=== PATIENT | female | born 1950 | race Hispanic/Latino ===

== ENCOUNTER 2017-11-24 00:46 | Inpatient (IN) | payer OTHER ==
[~2017-11-24] VITALS: Ht 170.2 cm; Wt 100.5 kg
[2017-11-24 01:41] LABS: BASOPHILS % (AUTO) 1.6 % (0.0-5.0); EOSINOPHILS % (AUTO) 2.6 % (0.0-8.0); HEMATOCRIT 25.5 % (36-48); LYMPHOCYTES % (AUTO) 4.3 % (21.0-51.0); MEAN CORPUSCULAR HEMOGLOBIN 31.7 pg (27.0-33.0); MEAN CORPUSCULAR HGB CONC 34.5 g/dL (32.0-36.0); MEAN CORPUSCULAR VOLUME 91.9 fL (79-99); MONOCYTES % (AUTO) 5.4 % (3.0-13.0); NEUTROPHILS % (AUTO) 86.1 % (40.0-77.0); PLATELET COUNT (AUTO) 129 K/uL (130-400); RED BLOOD CELL COUNT(AUTO) 2.77 MIL/uL (4.00-5.50); RED CELL DISTRIBUTION WIDTH 13.6 % (11.0-15.5); WHITE BLOOD COUNT (AUTO) 11.1 K/uL (4.8-10.8)
[2017-11-24] MEDS ORDERED: IPRATROPIUM/ALBUTEROL SULFATE 3 ML SOLUTION IH ONE (01:42)
[2017-11-24 01:59] LABS: CREATININE 3.3 mg/dL (0.5-1.5); POTASSIUM 5.3 mmol/L (3.5-5.1)
[2017-11-24 02:12] LABS: ALBUMIN 2.2 g/dL (3.5-5.0); BILIRUBIN,TOTAL 0.6 mg/dL (0.2-1.0); CREATINE KINASE MB 2.4 ng/mL (0.5-3.6); TOTAL PROTEIN, SERUM 7.7 g/dL (6.0-8.3)
[2017-11-24] MEDS ORDERED: SODIUM POLYSTYRENE SULFONATE 15 GM/60 ML ML ONE (03:12)
[2017-11-24] MEDS ORDERED: FUROSEMIDE 10 MG/ML 4ML VIAL ONE (03:13)
[2017-11-24] MEDS ORDERED: SODIUM BICARB 50MEQ 50ML VIAL ONE (03:13)
[2017-11-24] MEDS ORDERED: LABETALOL HCL 5 MG/ML 20ML VIAL IV ONE (04:08)
[2017-11-24 06:35] VITALS: BP 183/80
[2017-11-24] MEDS ORDERED: FUROSEMIDE 10 MG/ML 2ML VIAL IVP SCH ×2 (09:25→17:00)
[2017-11-24] MEDS ORDERED: POTASSIUM CHLORIDE 20 MEQ ERTAB PO PRN (09:30)
[2017-11-24] MEDS ORDERED: DEXTROSE 50%-WATER 50 ML DISP.SYRIN IV PRN (09:30)
[2017-11-24] MEDS ORDERED: POTASSIUM CHLORIDE 10% ELIXIR 20 MEQ/15 ML UDCUP PO PRN (09:30)
[2017-11-24] MEDS ORDERED: LIDOCAINE HCL-MPF 1% 2ML VIAL IJ PRN (09:30)
[2017-11-24] MEDS ORDERED: ACETAMINOPHEN-CODEINE ELIXIR 5 ML UDCUP PO PRN (09:30)
[2017-11-24] MEDS ORDERED: SODIUM CHLORIDE 0.9% 10 ML VIAL IVP SCH (09:30)
[2017-11-24] MEDS ORDERED: POTASSIUM CHLORIDE 20MEQ/100ML 100 ML IV PRN (09:30)
[2017-11-24] MEDS ORDERED: GLUCAGON 1MG KIT 1 MG ML IM PRN (09:30)
[2017-11-24] MEDS ORDERED: ONDANSETRON HCL 4 MG/2 ML VIAL IVP PRN (09:30)
[2017-11-24] MEDS ORDERED: FUROSEMIDE 10 MG/ML 2ML VIAL IV SCH (10:45)
[2017-11-24] MEDS ORDERED: LEVOFLOXACIN 500 MG/D5W 100 ML 100 ML IV SCH (10:45)
[2017-11-24] MEDS ORDERED: RENAL DOSE IV PRN (11:00)
[2017-11-24] MEDS: IPRATROPIUM/ALBUTEROL SULFATE 3 ML SOLUTION IH SCH ×3 (11:07→23:23)
[2017-11-24] MEDS: INSULIN R PO SSI SQ SCH ×3 (11:30→21:00)
[2017-11-24 11:43] VITALS: BP 178/78
[2017-11-24] MEDS ORDERED: ONDANSETRON HCL MDV 20ML 2 MG/ML VIAL IVP PRN (12:55)
[2017-11-24] MEDS ORDERED: CLONIDINE HCL 0.1 MG TABLET PO PRN (13:45)
[2017-11-24] MEDS ORDERED: CLONIDINE HCL 0.1 MG TABLET ONE (13:56)
[2017-11-24] MEDS: HEPARIN SODIUM 5000UNIT/ML 1ML VIAL SQ SCH ×2 (14:06→21:29)
[2017-11-24] MEDS ORDERED: CLON0.1T PO (14:25)
[2017-11-24] MEDS ORDERED: SERT50TA12 PO (14:25)
[2017-11-24] MEDS ORDERED: VERA240C3 PO (14:25)
[2017-11-24] MEDS ORDERED: ERGO400T7 PO (14:25)
[2017-11-24] MEDS ORDERED: SPIR25TA6 PO (14:25)
[2017-11-24 16:00] VITALS: BP 173/80
[2017-11-24] MEDS: HYDRALAZINE HCL 20 MG/ML VIAL IV PRN (17:41)
[2017-11-24 19:54] VITALS: BP 158/66
[2017-11-24] MEDS ORDERED: FAMOTIDINE 20MG TAB 20 MG TAB PO SCH (21:00)
[2017-11-24] MEDS ORDERED: FAMOTIDINE 20MG TAB 20 MG TAB ONE (21:19)
[2017-11-24] MEDS: FUROSEMIDE 10 MG/ML 4ML VIAL IV SCH (21:24)
[2017-11-24] MEDS: FAMOTIDINE 20MG TAB 20 MG TAB PO SCH (21:32)
[2017-11-24 22:15] LABS: APPEARANCE,URINE Clear (CLEAR); BILIRUBIN,URINE Negative (NEGATIVE); COLOR,URINE Yellow (YELLOW); GLUCOSE, URINE (UA) TRACE mg/dL (NEGATIVE); KETONES,URINE Negative (NEGATIVE); LEUKOCYTE ESTERASE ,URINE Trace (NEGATIVE); NITRATE,URINE Negative (NEGATIVE); OCCULT BLOOD,URINE Small (NEGATIVE); PROTEIN,URINE POS 2+ (NEGATIVE)
[2017-11-24 22:22] LABS: BACTERIA,URINE Few /HPF (None Seen); RBC,URINE None Seen /HPF (0-1)
[2017-11-24 23:36] VITALS: BP 145/71
[2017-11-25] VITALS (7 sets, daily range): BP systolic 149–189; BP diastolic 67–81
[2017-11-25] MEDS: ACETAMINOPHEN 325 MG TAB PO PRN (03:49)
[2017-11-25 04:38] LABS: CREATININE 3.2 mg/dL (0.5-1.5); POTASSIUM 4.7 mmol/L (3.5-5.1)
[2017-11-25 04:41] LABS: HEMATOCRIT 22.7 % (36-48); MEAN CORPUSCULAR HEMOGLOBIN 31.3 pg (27.0-33.0); MEAN CORPUSCULAR HGB CONC 34.2 g/dL (32.0-36.0); MEAN CORPUSCULAR VOLUME 91.6 fL (79-99); PLATELET COUNT (AUTO) 113 K/uL (130-400); RED BLOOD CELL COUNT(AUTO) 2.48 MIL/uL (4.00-5.50); RED CELL DISTRIBUTION WIDTH 13.6 % (11.0-15.5); WHITE BLOOD COUNT (AUTO) 9.7 K/uL (4.8-10.8)
[2017-11-25 04:46] LABS: B-TYPE NATRIURETIC PEPTIDE 386 pg/mL (0-100)
[2017-11-25] MEDS: FUROSEMIDE 10 MG/ML 4ML VIAL IV SCH ×3 (06:00→22:45)
[2017-11-25] MEDS: INSULIN R PO SSI SQ SCH ×4 (06:00→21:00)
[2017-11-25] MEDS: IPRATROPIUM/ALBUTEROL SULFATE 3 ML SOLUTION IH SCH ×4 (06:20→23:42)
[2017-11-25 08:52] LABS: ALBUMIN 1.8 g/dL (3.5-5.0); CREATININE 3.2 mg/dL (0.5-1.5); PHOSPHORUS 4.8 mg/dL (2.5-4.9); POTASSIUM 4.8 mmol/L (3.5-5.1)
[2017-11-25] MEDS: FAMOTIDINE 20MG TAB 20 MG TAB PO SCH (09:08)
[2017-11-25] MEDS: LEVOFLOXACIN 250 MG/D5W 50ML 50 ML IV SCH (09:08)
[2017-11-25] MEDS: HEPARIN SODIUM 5000UNIT/ML 1ML VIAL SQ SCH ×3 (09:17→21:14)
[2017-11-25] MEDS: HYDRALAZINE HCL 20 MG/ML VIAL IV PRN (18:02)
[2017-11-25] MEDS: CLONIDINE HCL 0.1 MG TABLET PO SCH (21:09)
[2017-11-26] MEDS: ACETAMINOPHEN 325 MG TAB PO PRN (01:12)
[2017-11-26 03:30] VITALS: BP 162/72
[2017-11-26 03:45] LABS: MEAN CORPUSCULAR HEMOGLOBIN 32.5 pg (27.0-33.0); MEAN CORPUSCULAR HGB CONC 35.6 g/dL (32.0-36.0); MEAN CORPUSCULAR VOLUME 91.3 fL (79-99); PLATELET COUNT (AUTO) 97 K/uL (130-400); RED BLOOD CELL COUNT(AUTO) 2.29 MIL/uL (4.00-5.50); RED CELL DISTRIBUTION WIDTH 13.5 % (11.0-15.5)
[2017-11-26 03:49] LABS: HEMATOCRIT 20.9 % (36-48)
[2017-11-26 04:02] LABS: CREATININE 3.3 mg/dL (0.5-1.5); POTASSIUM 4.4 mmol/L (3.5-5.1)
[2017-11-26 04:16] LABS: % IRON SATURATION 16.2 % (22-44)
[2017-11-26] MEDS: INSULIN R PO SSI SQ SCH ×4 (06:12→20:29)
[2017-11-26] MEDS: FUROSEMIDE 10 MG/ML 4ML VIAL IV SCH ×2 (06:12→17:04)
[2017-11-26] MEDS: IPRATROPIUM/ALBUTEROL SULFATE 3 ML SOLUTION IH SCH ×4 (06:17→23:25)
[2017-11-26 08:00] VITALS: BP 128/83
[2017-11-26] MEDS: VERAPAMIL 360 MG PO SCH (09:00)
[2017-11-26] MEDS: HEPARIN SODIUM 5000UNIT/ML 1ML VIAL SQ SCH ×3 (09:00→21:00)
[2017-11-26] MEDS: FAMOTIDINE 20MG TAB 20 MG TAB PO SCH (10:03)
[2017-11-26] MEDS: CLONIDINE HCL 0.1 MG TABLET PO SCH ×2 (10:03→21:00)
[2017-11-26] MEDS: LEVOFLOXACIN 250 MG/D5W 50ML 50 ML IV SCH (10:03)
[2017-11-26 10:08] LABS: ALBUMIN 1.5 g/dL (3.5-5.0); CREATININE 3.3 mg/dL (0.5-1.5); PHOSPHORUS 5.6 mg/dL (2.5-4.9)
[2017-11-26 12:00] VITALS: BP 181/83
[2017-11-26] MEDS: HYDRALAZINE HCL 20 MG/ML VIAL IV PRN (12:47)
[2017-11-26 16:00] VITALS: BP 172/85
[2017-11-26 19:35] VITALS: BP 124/54
[2017-11-26] MEDS: FERROUS SULFATE 325 MG TABLET.DR PO SCH (20:20)
[2017-11-26] MEDS: METOPROLOL TARTRATE 25 MG TAB PO SCH (20:21)
[2017-11-26] MEDS: INSULIN GLARGINE 100 UNITS/ML 10 ML VIAL SQ SCH (20:26)
[2017-11-26 23:25] VITALS: BP 159/69
[2017-11-27] VITALS (7 sets, daily range): BP systolic 143–191; BP diastolic 61–82
[2017-11-27 03:53] LABS: BASOPHILS % (AUTO) 0.4 % (0.0-5.0); EOSINOPHILS % (AUTO) 3.8 % (0.0-8.0); HEMATOCRIT 22.5 % (36-48); LYMPHOCYTES % (AUTO) 12.5 % (21.0-51.0); MEAN CORPUSCULAR HEMOGLOBIN 31.3 pg (27.0-33.0); MEAN CORPUSCULAR HGB CONC 34.8 g/dL (32.0-36.0); MEAN CORPUSCULAR VOLUME 89.9 fL (79-99); MONOCYTES % (AUTO) 9.1 % (3.0-13.0); NEUTROPHILS % (AUTO) 74.2 % (40.0-77.0); PLATELET COUNT (AUTO) 125 K/uL (130-400); RED BLOOD CELL COUNT(AUTO) 2.51 MIL/uL (4.00-5.50); RED CELL DISTRIBUTION WIDTH 13.5 % (11.0-15.5); WHITE BLOOD COUNT (AUTO) 8.8 K/uL (4.8-10.8)
[2017-11-27 04:09] LABS: ALBUMIN 1.6 g/dL (3.5-5.0); CREATININE 3.2 mg/dL (0.5-1.5); PHOSPHORUS 4.9 mg/dL (2.5-4.9); POTASSIUM 4.2 mmol/L (3.5-5.1)
[2017-11-27] MEDS: INSULIN R PO SSI SQ SCH ×4 (06:10→21:45)
[2017-11-27] MEDS: IPRATROPIUM/ALBUTEROL SULFATE 3 ML SOLUTION IH SCH ×3 (06:41→18:58)
[2017-11-27] MEDS: VERAPAMIL 360 MG PO SCH (09:00)
[2017-11-27] MEDS: HEPARIN SODIUM 5000UNIT/ML 1ML VIAL SQ SCH ×3 (09:00→21:00)
[2017-11-27 09:21] LABS: ALBUMIN 1.6 g/dL (3.5-5.0); CREATININE 3.3 mg/dL (0.5-1.5); PHOSPHORUS 4.9 mg/dL (2.5-4.9)
[2017-11-27] MEDS: FERROUS SULFATE 325 MG TABLET.DR PO SCH ×2 (10:56→21:42)
[2017-11-27] MEDS: BUMETANIDE 1 MG TAB PO SCH (10:56)
[2017-11-27] MEDS: METOPROLOL TARTRATE 25 MG TAB PO SCH ×2 (10:57→21:42)
[2017-11-27] MEDS: FAMOTIDINE 20MG TAB 20 MG TAB PO SCH (10:57)
[2017-11-27] MEDS: CLONIDINE HCL 0.1 MG TABLET PO SCH ×3 (10:58→21:43)
[2017-11-27] MEDS: LEVOFLOXACIN 250 MG/D5W 50ML 50 ML IV SCH (10:58)
[2017-11-27] MEDS: INSULIN GLARGINE 100 UNITS/ML 10 ML VIAL SQ SCH (21:52)
[2017-11-28] MEDS: IPRATROPIUM/ALBUTEROL SULFATE 3 ML SOLUTION IH SCH ×4 (00:10→18:25)
[2017-11-28 03:43] LABS: HEMATOCRIT 21.5 % (36-48); MEAN CORPUSCULAR HEMOGLOBIN 32.1 pg (27.0-33.0); MEAN CORPUSCULAR HGB CONC 35.6 g/dL (32.0-36.0); MEAN CORPUSCULAR VOLUME 90.1 fL (79-99); PLATELET COUNT (AUTO) 99 K/uL (130-400); RED BLOOD CELL COUNT(AUTO) 2.39 MIL/uL (4.00-5.50); WHITE BLOOD COUNT (AUTO) 6.1 K/uL (4.8-10.8)
[2017-11-28 04:00] VITALS: BP 171/78
[2017-11-28 04:01] LABS: CREATININE 3.2 mg/dL (0.5-1.5); POTASSIUM 4.2 mmol/L (3.5-5.1)
[2017-11-28] MEDS: INSULIN R PO SSI SQ SCH ×3 (06:21→20:39)
[2017-11-28 08:00] VITALS: BP 184/77
[2017-11-28] MEDS: LEVOFLOXACIN 250 MG/D5W 50ML 50 ML IV SCH (09:37)
[2017-11-28] MEDS: FAMOTIDINE 20MG TAB 20 MG TAB PO SCH (09:38)
[2017-11-28] MEDS: METOPROLOL TARTRATE 25 MG TAB PO SCH ×2 (09:38→20:40)
[2017-11-28] MEDS: FERROUS SULFATE 325 MG TABLET.DR PO SCH ×2 (09:38→20:40)
[2017-11-28] MEDS: BUMETANIDE 1 MG TAB PO SCH (09:38)
[2017-11-28] MEDS: CLONIDINE HCL 0.1 MG TABLET PO SCH ×3 (09:38→21:00)
[2017-11-28] MEDS: HYDRALAZINE HCL 20 MG/ML VIAL IV PRN (09:42)
[2017-11-28] MEDS: VERAPAMIL 360 MG PO SCH (09:45)
[2017-11-28 12:00] VITALS: BP 155/63
[2017-11-28] MEDS: AMLODIPINE BESYLATE 5 MG TAB PO SCH (13:08)
[2017-11-28 16:00] VITALS: BP 140/61
[2017-11-28 20:03] VITALS: BP 123/90
[2017-11-28] MEDS: INSULIN GLARGINE 100 UNITS/ML 10 ML VIAL SQ SCH (20:43)
[2017-11-28 23:46] VITALS: BP 132/54
[2017-11-29] MEDS: IPRATROPIUM/ALBUTEROL SULFATE 3 ML SOLUTION IH SCH ×5 (01:24→23:18)
[2017-11-29 03:59] VITALS: BP 144/59
[2017-11-29] MEDS: INSULIN R PO SSI SQ SCH ×4 (05:52→20:37)
[2017-11-29 05:56] LABS: HEMATOCRIT 21.8 % (36-48); MEAN CORPUSCULAR HEMOGLOBIN 31.6 pg (27.0-33.0); MEAN CORPUSCULAR HGB CONC 35.2 g/dL (32.0-36.0); MEAN CORPUSCULAR VOLUME 89.8 fL (79-99); PLATELET COUNT (AUTO) 111 K/uL (130-400); RED BLOOD CELL COUNT(AUTO) 2.43 MIL/uL (4.00-5.50); RED CELL DISTRIBUTION WIDTH 13.3 % (11.0-15.5); WHITE BLOOD COUNT (AUTO) 6.6 K/uL (4.8-10.8)
[2017-11-29 06:07] LABS: CREATININE 3.2 mg/dL (0.5-1.5); POTASSIUM 4.3 mmol/L (3.5-5.1)
[2017-11-29 08:00] VITALS: BP 164/74
[2017-11-29] MEDS: VERAPAMIL 360 MG PO SCH (09:00)
[2017-11-29] MEDS: FAMOTIDINE 20MG TAB 20 MG TAB PO SCH (09:49)
[2017-11-29] MEDS: FERROUS SULFATE 325 MG TABLET.DR PO SCH ×2 (09:50→20:33)
[2017-11-29] MEDS: CLONIDINE HCL 0.1 MG TABLET PO SCH ×3 (09:50→20:33)
[2017-11-29] MEDS: BUMETANIDE 1 MG TAB PO SCH (09:50)
[2017-11-29] MEDS: AMLODIPINE BESYLATE 5 MG TAB PO SCH (09:50)
[2017-11-29] MEDS: METOPROLOL TARTRATE 25 MG TAB PO SCH ×2 (09:50→20:33)
[2017-11-29] MEDS: LEVOFLOXACIN 250 MG/D5W 50ML 50 ML IV SCH (09:50)
[2017-11-29 12:00] VITALS: BP 152/61
[2017-11-29 16:00] VITALS: BP 131/79
[2017-11-29] MEDS: GUAIFENESIN-DM 200/20 MG 10 ML PO PRN (16:53)
[2017-11-29 19:47] VITALS: BP 116/49
[2017-11-29] MEDS: INSULIN GLARGINE 100 UNITS/ML 10 ML VIAL SQ SCH (20:36)
[2017-11-29 23:31] VITALS: BP 115/51
[2017-11-30 04:14] VITALS: BP 135/70
[2017-11-30 05:39] LABS: HEMATOCRIT 21.4 % (36-48); MEAN CORPUSCULAR HGB CONC 36.7 g/dL (32.0-36.0); MEAN CORPUSCULAR VOLUME 90.1 fL (79-99); PLATELET COUNT (AUTO) 106 K/uL (130-400); RED BLOOD CELL COUNT(AUTO) 2.37 MIL/uL (4.00-5.50); RED CELL DISTRIBUTION WIDTH 13.1 % (11.0-15.5); WHITE BLOOD COUNT (AUTO) 7.1 K/uL (4.8-10.8)
[2017-11-30 05:53] LABS: CREATININE 3.5 mg/dL (0.5-1.5); POTASSIUM 4.5 mmol/L (3.5-5.1)
[2017-11-30] MEDS: INSULIN R PO SSI SQ SCH ×4 (05:59→21:00)
[2017-11-30] MEDS: IPRATROPIUM/ALBUTEROL SULFATE 3 ML SOLUTION IH SCH ×4 (06:41→23:30)
[2017-11-30 08:00] VITALS: BP 139/59
[2017-11-30] MEDS: LEVOFLOXACIN 250 MG/D5W 50ML 50 ML IV SCH (08:45)
[2017-11-30] MEDS: FERROUS SULFATE 325 MG TABLET.DR PO SCH ×2 (08:46→21:06)
[2017-11-30] MEDS: CLONIDINE HCL 0.1 MG TABLET PO SCH ×3 (08:46→21:07)
[2017-11-30] MEDS: METOPROLOL TARTRATE 25 MG TAB PO SCH ×2 (08:46→21:06)
[2017-11-30] MEDS: AMLODIPINE BESYLATE 5 MG TAB PO SCH (08:46)
[2017-11-30] MEDS: FAMOTIDINE 20MG TAB 20 MG TAB PO SCH (08:46)
[2017-11-30] MEDS: VERAPAMIL 360 MG PO SCH (08:54)
[2017-11-30] MEDS: BUMETANIDE 1 MG TAB PO SCH (09:36)
[2017-11-30 11:00] VITALS: BP 127/53
[2017-11-30 16:00] VITALS: BP 133/56
[2017-11-30 20:00] VITALS: BP 118/48
[2017-11-30] MEDS: INSULIN GLARGINE 100 UNITS/ML 10 ML VIAL SQ SCH (21:11)
[2017-11-30] MEDS: GUAIFENESIN-DM 200/20 MG 10 ML PO PRN (21:23)
[2017-11-30 23:55] VITALS: BP 116/61
[2017-12-01 03:52] VITALS: BP 122/53
[2017-12-01] MEDS: INSULIN R PO SSI SQ SCH ×3 (06:04→16:30)
[2017-12-01] MEDS: IPRATROPIUM/ALBUTEROL SULFATE 3 ML SOLUTION IH SCH ×2 (06:14→11:24)
[2017-12-01 07:55] VITALS: BP 127/53
[2017-12-01] MEDS: VERAPAMIL 360 MG PO SCH (09:00)
[2017-12-01] MEDS: AMLODIPINE BESYLATE 5 MG TAB PO SCH (10:37)
[2017-12-01] MEDS: FAMOTIDINE 20MG TAB 20 MG TAB PO SCH (10:37)
[2017-12-01] MEDS: METOPROLOL TARTRATE 25 MG TAB PO SCH (10:38)
[2017-12-01] MEDS: LEVOFLOXACIN 250 MG/D5W 50ML 50 ML IV SCH (10:38)
[2017-12-01] MEDS: CLONIDINE HCL 0.1 MG TABLET PO SCH ×2 (10:38→13:50)
[2017-12-01] MEDS: FERROUS SULFATE 325 MG TABLET.DR PO SCH (10:38)
[2017-12-01] MEDS: BUMETANIDE 1 MG TAB PO SCH (10:47)
[2017-12-01 11:39] VITALS: BP 122/55
[2017-12-01] MEDS ORDERED: FERR324T4 PO (15:32)
[2017-12-01] MEDS ORDERED: METO25 PO (15:32)
[2017-12-01] MEDS ORDERED: CLON.1 PO (15:32)
[2017-12-01] MEDS ORDERED: INSLAN SQ (15:32)
[2017-12-01] MEDS ORDERED: LEVO250T2 PO (15:32)
[2017-12-01] MEDS ORDERED: AMLO5TAB4 PO (15:32)
[2017-12-01] MEDS ORDERED: BUME1TAB12 PO (15:32)
[2017-12-01 16:43] VITALS: BP 120/54
== END 2017-12-01 19:35 | disposition home or self-care (01) | DRG 682 ==
LOC: EDH 00:46 → 3BH 04:08
PROVIDERS: ADMIT Family Medicine; ATTEND Family Medicine
DX: N17.9 Acute kidney failure, unspecified (principal); J18.9 Pneumonia, unspecified organism; E11.21 Type 2 diabetes mellitus with diabetic nephropathy; E44.1 Mild protein-calorie malnutrition; N18.4 Chronic kidney disease, stage 4 (severe); E11.22 Type 2 diabetes mellitus with diabetic chronic kidney disease; E87.5 Hyperkalemia; D63.8 Anemia in other chronic diseases classified elsewhere; R60.0 Localized edema; E87.70 Fluid overload, unspecified; E66.9 Obesity, unspecified; I12.9 Hypertensive chronic kidney disease with stage 1 through stage 4 chronic kidney disease, or unspecified chronic kidney disease; D63.1 Anemia in chronic kidney disease; J20.8 Acute bronchitis due to other specified organisms; J20.6 Acute bronchitis due to rhinovirus; D50.9 Iron deficiency anemia, unspecified; Z68.34 Body mass index [BMI] 34.0-34.9, adult; T50.2X5A Adverse effect of carbonic-anhydrase inhibitors, benzothiadiazides and other diuretics, initial encounter; Z90.710 Acquired absence of both cervix and uterus; Z82.49 Family history of ischemic heart disease and other diseases of the circulatory system
CPT/HCPCS: 36415; 71045; 71046; 76700; 80048; 80053; 80069; 81001; 82270; 82550; 82553; 82948; 83540; 83550; 83880; 84484; 85025; 85027; 87633; 87804; 93005; 94640; 94664; 97039; 99291; A4344; J0360; J1644; J1815; J1940; J1956; J3490

== ENCOUNTER 2020-09-29 07:41 | Inpatient (IN) | payer MEDICARE, OTHER ==
[~2020-09-29] VITALS: Ht 152.4 cm; Wt 89.4 kg
[~2020-09-29 07:41] MED LIST: AMLO5TAB4 PO; APIX5TAB PO; ATORVASTATIN PO; CALC667C10 PO; CLONIDINE PO; FERR324T4 PO; FURO80TA3 PO; HYDR30CR79 RC; INSLAN SQ; METO25 PO; PANT40TA PO; SERT-439 PO
[2020-09-29 08:43] LABS: BASOPHILS % (AUTO) 0.4 % (0.0-5.0); EOSINOPHILS % (AUTO) 1.6 % (0.0-8.0); LYMPHOCYTES % (AUTO) 8.6 % (21.0-51.0); MEAN CORPUSCULAR HGB CONC 33.2 g/dL (32.0-36.0); MEAN CORPUSCULAR VOLUME 93.4 fL (79-99); MONOCYTES % (AUTO) 5.4 % (3.0-13.0); NEUTROPHILS % (AUTO) 83.6 % (40.0-77.0); PLATELET COUNT (AUTO) 66 K/uL (130-400); RED BLOOD CELL COUNT(AUTO) 2.13 MIL/uL (4.00-5.50); RED CELL DISTRIBUTION WIDTH 14.1 % (11.0-15.5)
[2020-09-29 08:45] LABS: HEMATOCRIT 19.9 % (36-48)
[2020-09-29 09:00] LABS: ALBUMIN 2.9 g/dL (3.5-5.0); BILIRUBIN,TOTAL 0.6 mg/dL (0.2-1.0); CREATININE 7.1 mg/dL (0.5-1.5); POTASSIUM 3.3 mmol/L (3.5-5.1); TOTAL PROTEIN, SERUM 7.2 g/dL (6.0-8.3)
[2020-09-29 09:01] LABS: INR 1.32 (0.85-1.15)
[2020-09-29 10:30] LABS: PLATELET MORPHOLOGY COMMENT DECREASED
[2020-09-29] MEDS ORDERED: 0.9%NACL 100ML 100 ML IV ONE (12:48)
[2020-09-29] MEDS ORDERED: LABETALOL 20MG SYG IV SCH (16:00)
[2020-09-29] MEDS ORDERED: LABETALOL 20MG SYG IV ONE (16:00)
[2020-09-29] MEDS ORDERED: LABETALOL 20MG VIAL IV ONE (21:57)
[2020-09-29 22:12] LABS: HEMATOCRIT 20.9 % (36-48)
[2020-09-30] MEDS ORDERED: FUROSEMIDE 40 MG TABLET ONE ×2 (08:40→21:00)
[2020-09-30] MEDS ORDERED: CLONIDINE HCL 0.2 MG TABLET PO ONE (08:40)
[2020-09-30] MEDS ORDERED: METOPROLOL TARTRATE 25 MG TAB ONE ×2 (08:41→21:01)
[2020-09-30] MEDS ORDERED: LISINOPRIL 20 MG TABLET ONE (08:41)
[2020-09-30] MEDS ORDERED: SERTRALINE HCL 50 MG TABLET ONE (08:41)
[2020-09-30] MEDS: ATORVASTATIN 40 MG TABLET PO SCH (09:00)
[2020-09-30] MEDS: FUROSEMIDE 80 MG TABLET PO SCH ×2 (09:00→21:00)
[2020-09-30] MEDS: SERTRALINE HCL 50 MG TABLET PO SCH (09:00)
[2020-09-30] MEDS: METOPROLOL TARTRATE 25 MG TAB PO SCH (21:00)
[2020-09-30] MEDS ORDERED: ATORVASTATIN 40 MG TABLET ONE (21:01)
[2020-10-01] VITALS (17 sets, daily range): BP systolic 135–185; BP diastolic 60–75
[2020-10-01 04:07] LABS: HEMATOCRIT 19.5 % (36-48)
[2020-10-01 07:19] LABS: BILIRUBIN,TOTAL 0.7 mg/dL (0.2-1.0); POTASSIUM 3.6 mmol/L (3.5-5.1); TOTAL PROTEIN, SERUM 7.1 g/dL (6.0-8.3)
[2020-10-01 07:23] LABS: CREATININE 8.1 mg/dL (0.5-1.5)
[2020-10-01] MEDS: CLONIDINE HCL 0.2 MG TABLET PO SCH ×2 (09:00→11:27)
[2020-10-01] MEDS: METOPROLOL TARTRATE 25 MG TAB PO SCH ×3 (09:00→20:42)
[2020-10-01] MEDS ORDERED: ENOXAPARIN SODIUM 30 MG/0.3 ML SQ SCH (09:00)
[2020-10-01] MEDS: FUROSEMIDE 80 MG TABLET PO SCH ×2 (09:00→20:43)
[2020-10-01] MEDS: SERTRALINE HCL 50 MG TABLET PO SCH (09:00)
[2020-10-01] MEDS: LISINOPRIL 20 MG TABLET PO SCH ×2 (09:00→11:23)
[2020-10-01] MEDS: ATORVASTATIN 40 MG TABLET PO SCH (09:00)
[2020-10-01] MEDS ORDERED: CEFAZOLIN SODIUM 1 GM VIAL ONE (13:01)
[2020-10-01] MEDS ORDERED: SUCCINYLCHOLINE CHLORIDE 20 MG/ML 10 ML VIAL ONE (13:03)
[2020-10-01] MEDS ORDERED: DEXAMETHASONE SOD PHOSPHATE 10MG/ML 1ML VIAL ONE (13:03)
[2020-10-01] MEDS ORDERED: LIDOCAINE PF 100MG/5ML (2%) SYRINGE 5ML ONE (13:04)
[2020-10-01] MEDS ORDERED: NEOSTIGMINE 5MG/5ML SYR IV ONE (13:04)
[2020-10-01] MEDS ORDERED: MIDAZOLAM HCL 1 MG/ML 2ML VIAL ONE ×2 (13:04→14:09)
[2020-10-01] MEDS ORDERED: PROPOFOL 10 MG/ML 20ML VIAL IV ONE (13:04)
[2020-10-01] MEDS ORDERED: GLYCOPYRROLATE 1 MG/5 ML SYRINGE ONE (13:04)
[2020-10-01] MEDS ORDERED: ONDANSETRON 4MG INJ ONE (13:04)
[2020-10-01] MEDS ORDERED: ROCURONIUM 10MG/1ML SYR 10 MG/ML ML ONE (13:04)
[2020-10-01] MEDS ORDERED: FENTANYL CITRATE PF 50 MCG/1 ML 2ML VIAL ONE (13:05)
[2020-10-01] MEDS ORDERED: ALBUMIN (HUMAN) 5% 250 ML IV ONE (13:22)
[2020-10-01] MEDS ORDERED: ALBUMIN (HUMAN) 25% 100 ML IV ONE (13:22)
[2020-10-01] MEDS ORDERED: LIDOCAINE HCL 400MG/20ML VIAL ONE (13:46)
[2020-10-01] MEDS ORDERED: ROPIVACAINE 0.5% 5MG/ML 30ML IJ ONE (13:47)
[2020-10-01 13:53] LABS: BASOPHILS % (AUTO) 0.2 % (0.0-5.0); EOSINOPHILS % (AUTO) 2.8 % (0.0-8.0); LYMPHOCYTES % (AUTO) 16.7 % (21.0-51.0); MEAN CORPUSCULAR HEMOGLOBIN 31.4 pg (27.0-33.0); MEAN CORPUSCULAR HGB CONC 33.5 g/dL (32.0-36.0); MEAN CORPUSCULAR VOLUME 93.6 fL (79-99); NEUTROPHILS % (AUTO) 74.1 % (40.0-77.0); PLATELET COUNT (AUTO) 52 K/uL (130-400); RED BLOOD CELL COUNT(AUTO) 2.04 MIL/uL (4.00-5.50); RED CELL DISTRIBUTION WIDTH 14.6 % (11.0-15.5)
[2020-10-01 14:08] LABS: HEMATOCRIT 19.1 % (36-48)
[2020-10-01] MEDS: CEFAZOLIN SODIUM 1 GM VIAL ONE ×2 (14:25→14:32)
[2020-10-01] MEDS ORDERED: HEPARIN 10,000 UNIT/10ML (1,000 UNIT/ML) VIAL ONE (14:51)
[2020-10-01] MEDS ORDERED: PROTAMINE SULFATE 10 MG/ML 25ML VIAL IV ONE (14:51)
[2020-10-01] MEDS ORDERED: LIDOCAINE HCL 1% 20 ML VIAL ONE (15:13)
[2020-10-01] MEDS ORDERED: BUPIVACAINE/PF 0.25% 30ML VIAL IJ ONE (15:13)
[2020-10-01] MEDS ORDERED: HYDRALAZINE 20MG/ML VIAL ONE (15:32)
[2020-10-01] MEDS: APIXABAN 5 MG TABLET PO SCH (20:20)
[2020-10-01] MEDS: INSULIN GLARGINE 100 UNITS/ML 10 ML VIAL SQ SCH (20:39)
[2020-10-02] VITALS: BP 152/67
[2020-10-02 04:00] VITALS: BP 177/74
[2020-10-02 05:10] LABS: BASOPHILS % (AUTO) 0.3 % (0.0-5.0); EOSINOPHILS % (AUTO) 2.1 % (0.0-8.0); HEMATOCRIT 27.3 % (36-48); LYMPHOCYTES % (AUTO) 13.8 % (21.0-51.0); MEAN CORPUSCULAR HEMOGLOBIN 30.7 pg (27.0-33.0); MEAN CORPUSCULAR HGB CONC 33.7 g/dL (32.0-36.0); MONOCYTES % (AUTO) 6.9 % (3.0-13.0); NEUTROPHILS % (AUTO) 76.4 % (40.0-77.0); PLATELET COUNT (AUTO) 76 K/uL (130-400); RED CELL DISTRIBUTION WIDTH 14.6 % (11.0-15.5); WHITE BLOOD COUNT (AUTO) 6.1 K/uL (4.8-10.8)
[2020-10-02 05:51] LABS: ALBUMIN 3.8 g/dL (3.5-5.0); POTASSIUM 3.8 mmol/L (3.5-5.1)
[2020-10-02 05:55] LABS: CREATININE 8.1 mg/dL (0.5-1.5)
[2020-10-02] MEDS ORDERED: HYDROCODONE/ACETAMINOPHEN 5/325 MG TAB PO PRN (07:30)
[2020-10-02] MEDS ORDERED: TRAMADOL HCL 50 MG TABLET PO PRN (07:45)
[2020-10-02] MEDS: CALCIUM AC 667MG CAP PO SCH ×3 (08:00→16:09)
[2020-10-02 08:20] VITALS: BP 187/86
[2020-10-02] MEDS: SERTRALINE HCL 50 MG TABLET PO SCH (09:51)
[2020-10-02] MEDS: LISINOPRIL 20 MG TABLET PO SCH (09:51)
[2020-10-02] MEDS: CLONIDINE HCL 0.2 MG TABLET PO SCH (09:52)
[2020-10-02] MEDS: ATORVASTATIN 40 MG TABLET PO SCH (09:52)
[2020-10-02] MEDS: METOPROLOL TARTRATE 25 MG TAB PO SCH ×2 (09:52→20:28)
[2020-10-02] MEDS: APIXABAN 5 MG TABLET PO SCH (09:53)
[2020-10-02] MEDS: TRAMADOL HCL 50 MG TABLET PO PRN (09:58)
[2020-10-02 11:37] VITALS: BP 164/70
[2020-10-02] MEDS: INSULIN HUMULIN R 100 UNIT/ML 3ML SQ SCH ×3 (13:21→20:28)
[2020-10-02 16:13] VITALS: BP 184/70
[2020-10-02] MEDS: APIXABAN 2.5 MG TABLET PO SCH ×2 (18:17→22:10)
[2020-10-02] MEDS: INSULIN GLARGINE 100 UNITS/ML 10 ML VIAL SQ SCH (20:26)
[2020-10-02 21:30] VITALS: BP 166/63
[2020-10-03] VITALS (7 sets, daily range): BP systolic 122–209; BP diastolic 52–88
[2020-10-03] MEDS: TRAMADOL HCL 50 MG TABLET PO PRN ×3 (04:29→22:58)
[2020-10-03] MEDS: CALCIUM AC 667MG CAP PO SCH ×3 (05:29→16:42)
[2020-10-03] MEDS: INSULIN HUMULIN R 100 UNIT/ML 3ML SQ SCH ×4 (06:00→22:09)
[2020-10-03 06:06] LABS: BASOPHILS % (AUTO) 0.3 % (0.0-5.0); EOSINOPHILS % (AUTO) 1.6 % (0.0-8.0); HEMATOCRIT 23.6 % (36-48); LYMPHOCYTES % (AUTO) 12.5 % (21.0-51.0); MEAN CORPUSCULAR HEMOGLOBIN 30.8 pg (27.0-33.0); MEAN CORPUSCULAR HGB CONC 33.9 g/dL (32.0-36.0); MEAN CORPUSCULAR VOLUME 90.8 fL (79-99); MONOCYTES % (AUTO) 7.6 % (3.0-13.0); NEUTROPHILS % (AUTO) 77.4 % (40.0-77.0); PLATELET COUNT (AUTO) 70 K/uL (130-400); RED CELL DISTRIBUTION WIDTH 14.2 % (11.0-15.5)
[2020-10-03 06:44] LABS: ALBUMIN 3.4 g/dL (3.5-5.0); BILIRUBIN,TOTAL 0.8 mg/dL (0.2-1.0); POTASSIUM 3.9 mmol/L (3.5-5.1); TOTAL PROTEIN, SERUM 7.5 g/dL (6.0-8.3)
[2020-10-03 06:46] LABS: CREATININE 8.2 mg/dL (0.5-1.5)
[2020-10-03] MEDS: LISINOPRIL 20 MG TABLET PO SCH (07:46)
[2020-10-03] MEDS: CLONIDINE HCL 0.2 MG TABLET PO SCH (07:47)
[2020-10-03] MEDS: METOPROLOL TARTRATE 25 MG TAB PO SCH ×2 (07:47→21:00)
[2020-10-03] MEDS: FUROSEMIDE 80 MG TABLET PO SCH ×2 (09:00→21:00)
[2020-10-03] MEDS: ATORVASTATIN 40 MG TABLET PO SCH (09:00)
[2020-10-03] MEDS: SERTRALINE HCL 50 MG TABLET PO SCH (09:00)
[2020-10-03] MEDS ORDERED: HEPARIN 1,000 UNIT VIAL ONE (12:01)
[2020-10-03] MEDS ORDERED: LIDOCAINE HCL 400MG/20ML VIAL ONE (12:02)
[2020-10-03] MEDS ORDERED: ACETAMINOPHEN 325 MG TAB PO PRN (16:00)
[2020-10-03] MEDS ORDERED: 0.9%NACL 1000ML IV PRN (16:00)
[2020-10-03] MEDS ORDERED: ALBUMIN FOR BP SUPPORT MISC PRN (16:00)
[2020-10-03] MEDS ORDERED: HEPARIN 5,000 UNIT VIAL IJ PRN (16:00)
[2020-10-03] MEDS ORDERED: NITROGLYCERIN 0.4 MG SL TAB SL PRN (16:00)
[2020-10-03] MEDS ORDERED: LIDOCAINE HCL-MPF 1% 2ML VIAL IJ PRN (16:00)
[2020-10-03] MEDS ORDERED: 0.9%NACL 1000ML 1,000 ML IV PRN (16:00)
[2020-10-03] MEDS: APIXABAN 2.5 MG TABLET PO SCH (22:07)
[2020-10-03] MEDS: INSULIN GLARGINE 100 UNITS/ML 10 ML VIAL SQ SCH (22:08)
[2020-10-04 03:49] VITALS: BP 172/64
[2020-10-04 04:01] LABS: BASOPHILS % (AUTO) 0.3 % (0.0-5.0); EOSINOPHILS % (AUTO) 1.2 % (0.0-8.0); LYMPHOCYTES % (AUTO) 12.5 % (21.0-51.0); MEAN CORPUSCULAR HGB CONC 33.9 g/dL (32.0-36.0); MEAN CORPUSCULAR VOLUME 91.3 fL (79-99); MONOCYTES % (AUTO) 9.8 % (3.0-13.0); NEUTROPHILS % (AUTO) 75.7 % (40.0-77.0); PLATELET COUNT (AUTO) 72 K/uL (130-400); RED BLOOD CELL COUNT(AUTO) 2.52 MIL/uL (4.00-5.50); RED CELL DISTRIBUTION WIDTH 13.8 % (11.0-15.5); WHITE BLOOD COUNT (AUTO) 7.4 K/uL (4.8-10.8)
[2020-10-04 04:16] LABS: ALBUMIN 3.2 g/dL (3.5-5.0); BILIRUBIN,TOTAL 0.9 mg/dL (0.2-1.0); POTASSIUM 3.5 mmol/L (3.5-5.1); TOTAL PROTEIN, SERUM 7.1 g/dL (6.0-8.3)
[2020-10-04] MEDS: INSULIN HUMULIN R 100 UNIT/ML 3ML SQ SCH ×3 (07:30→16:30)
[2020-10-04 07:39] VITALS: BP 147/73
[2020-10-04] MEDS ORDERED: TRAM50TA4 PO (08:15)
[2020-10-04] MEDS: CALCIUM AC 667MG CAP PO SCH ×3 (08:33→17:00)
[2020-10-04] MEDS: METOPROLOL TARTRATE 25 MG TAB PO SCH (08:33)
[2020-10-04] MEDS: ATORVASTATIN 40 MG TABLET PO SCH (08:35)
[2020-10-04] MEDS: LISINOPRIL 20 MG TABLET PO SCH (08:35)
[2020-10-04] MEDS: SERTRALINE HCL 50 MG TABLET PO SCH (08:39)
[2020-10-04] MEDS: CLONIDINE HCL 0.2 MG TABLET PO SCH (08:46)
[2020-10-04] MEDS: APIXABAN 2.5 MG TABLET PO SCH (09:00)
[2020-10-04 09:14] LABS: HEPATITIS A ANTIBODY IGM Negative (Negative); HEPATITIS B CORE IGM Negative (Negative); HEPATITIS Bs ANTIGEN SCREEN P Negative (Negative)
[2020-10-04 10:53] VITALS: BP 130/77
[2020-10-04] MEDS ORDERED: HEPARIN 5,000 UNIT VIAL SQ SCH (15:55)
[2020-10-04 16:22] VITALS: BP 128/101
== END 2020-10-04 17:40 | disposition home or self-care (01) | DRG 252 ==
LOC: EDH 07:41 → EDHIP 08:39 → OBSVTOIN 08:39 → 3AH 09-30 04:44 → EDHIP 09-30 04:58 → 3DH 10-01 10:59
PROVIDERS: ADMIT Family Medicine; ATTEND Family Medicine
PROC: 30233N1 Transfusion of Nonautologous Red Blood Cells into Peripheral Vein, Percutaneous Approach (ICD-10-PCS; 2020-09-29)
PROC: 5A1D70Z Performance of Urinary Filtration, Intermittent, Less than 6 Hours Per Day (ICD-10-PCS; 2020-09-29)
PROC: 30233R1 Transfusion of Nonautologous Platelets into Peripheral Vein, Percutaneous Approach (ICD-10-PCS; 2020-10-01)
PROC: 03CY0ZZ Extirpation of Matter from Upper Artery, Open Approach (ICD-10-PCS; principal; 2020-10-01 13:55)
PROC: 03WY0JZ Revision of Synthetic Substitute in Upper Artery, Open Approach (ICD-10-PCS; 2020-10-01 13:55)
PROC: 5A1D70Z Performance of Urinary Filtration, Intermittent, Less than 6 Hours Per Day (ICD-10-PCS; 2020-10-02)
PROC: 5A1D70Z Performance of Urinary Filtration, Intermittent, Less than 6 Hours Per Day (ICD-10-PCS; 2020-10-03)
PROC: 0JH63XZ Insertion of Tunneled Vascular Access Device into Chest Subcutaneous Tissue and Fascia, Percutaneous Approach (ICD-10-PCS; 2020-10-03)
PROC: 02HV33Z Insertion of Infusion Device into Superior Vena Cava, Percutaneous Approach (ICD-10-PCS; 2020-10-03)
PROC: B548ZZA Ultrasonography of Superior Vena Cava, Guidance (ICD-10-PCS; 2020-10-03)
PROC: 5A1D70Z Performance of Urinary Filtration, Intermittent, Less than 6 Hours Per Day (ICD-10-PCS; 2020-10-04)
DX: T82.838A Hemorrhage due to vascular prosthetic devices, implants and grafts, initial encounter (principal); N18.6 End stage renal disease; I12.0 Hypertensive chronic kidney disease with stage 5 chronic kidney disease or end stage renal disease; E11.22 Type 2 diabetes mellitus with diabetic chronic kidney disease; I72.1 Aneurysm of artery of upper extremity; D63.8 Anemia in other chronic diseases classified elsewhere; Z20.822 Contact with and (suspected) exposure to COVID-19; R79.1 Abnormal coagulation profile; Y71.2 Prosthetic and other implants, materials and accessory cardiovascular devices associated with adverse incidents; Y84.1 Kidney dialysis as the cause of abnormal reaction of the patient, or of later complication, without mention of misadventure at the time of the procedure; Z99.2 Dependence on renal dialysis; Y92.89 Other specified places as the place of occurrence of the external cause; Z83.3 Family history of diabetes mellitus; Z82.49 Family history of ischemic heart disease and other diseases of the circulatory system
CPT/HCPCS: 36415; 36558; 77001; 80053; 80074; 82948; 85014; 85018; 85025; 85610; 85730; 86850; 86900; 86901; 86923; 87426; 88304; 90935; C1750; G0378; J0330; J0360; J0690; J1100; J1644; J1815; J2001; J2250; J2405; J2704; J2710; J2720; J2795; J3010; J3490; J7030; P9016; P9034; P9045; P9047; U0003